=== PATIENT | male | born 1950 | race Caucasian/White ===

== ENCOUNTER → 2017-10-01 14:37 | Outpatient (CLI) | payer MEDICARE, OTHER, SELFPAY ==
--- NOTE | 2017-10-01 14:46 | RAD_ITS ---
STUDY: X-RAY - LEFT KNEE REASON FOR EXAM: Male, 67 years old. Chronic knee pain. TECHNIQUE: 4 view(s) of the knee. COMPARISON: None. FINDINGS: Normal visualized distal femur. Normal visualized proximal tibia and fibula. Normal proximal tibiofibular articulation. Normal medial femorotibial compartment. Normal lateral femorotibial compartment. Normal patellofemoral articulation. The soft tissue structures are unremarkable. RAD/Knee 4 or More Views IMPRESSION: No significant abnormality. Electronically Signed: Mikael Petty MD at 14:57 EST , Service support ,
== END ==
PROVIDERS: Family Provider Family Medicine; PCP Family Medicine; Visit Provider Orthopaedic Surgery
DX: M25.562 Pain in left knee (principal)
CPT/HCPCS: 73564

== ENCOUNTER → 2017-10-14 10:53 | Outpatient (CLI) | payer MEDICARE, OTHER, SELFPAY ==
--- NOTE | 2017-10-14 10:57 | MRI_ITS ---
STUDY: MRI LEFT KNEE REASON FOR EXAM: Male, 67 years old. Medial knee pain x1 year. TECHNIQUE: Standardized fat and water weighted pulse sequences were obtained in all 3 orthogonal planes. COMPARISON: X-RAY LEFT KNEE-October 01, 2017 FINDINGS: There is a intrasubstance degeneration of the body the medial meniscus (coronal T2 series 6, image 15). There is a horizontal undersurface meniscal tear arising at the junction of the posterior body and posterior horn of the medial meniscus (sagittal T2 fat sat series 4, image 5) extending into the posterior horn to the posterior meniscal root. There is an associated multiseptated para meniscal cyst along the posterior medial knee corner (sagittal T2 fat sat series 4, image 3; axial T2 fat sat series 2, image 20; coronal T2 fat sat series 6, image 12), measuring 23 x 5 x 20 mm (AP x mediolateral x craniocaudal). Normal hyaline cartilage of the medial femorotibial compartment. Normal medial femoral condyle and tibial plateau. Normal medial collateral ligamentous complex (MCL). Normal distal semimembranosus, gracilis and semitendinosus tendons. Normal lateral meniscus. Normal hyaline cartilage of the lateral femorotibial compartment. Normal lateral femoral condyle and tibial plateau. Normal proximal tibiofibular articulation. Normal lateral collateral (fibular) ligament. Normal popliteus tendon. Normal biceps femoris tendon. Normal anterior cruciate ligament (ACL). Normal posterior cruciate ligament (PCL). Normal congruent patellofemoral articulation. Normal hyaline cartilage of the patellofemoral compartment. Normal medial and lateral patellar retinaculum. Normal quadriceps tendon. Normal patellar tendon. Normal Hoffa's fat pad. There is a small volume joint effusion. There is edema of the subcutaneous adipose space in a prepatellar/patella tendon location (axial T2 fat sat series 2, image 13; sagittal T2 fat sat series 4, image 15). The otherwise visualized osseous structures are unremarkable. MRI/Lower Ext Joint Only (Routine) IMPRESSION: 1. Full-thickness horizontal tear of the undersurface of the posterior body of the medial meniscus extending to the posterior meniscal root. 2. Associated multiseptated para meniscal cyst along the posterior medial knee corner. 3. Small volume joint effusion. 4. Edema of the subcutaneous adipose space in a prepatellar/patella tendon location. Electronically Signed: Guerrero Rico DO at 13:52 EST Tel , Service support ,
== END ==
PROVIDERS: Family Provider Family Medicine; PCP Family Medicine; Visit Provider Orthopaedic Surgery
DX: S83.242A Other tear of medial meniscus, current injury, left knee, initial encounter (principal)
CPT/HCPCS: 73721

== ENCOUNTER 2019-07-28 13:00 | Outpatient (RCR) | payer MEDICARE, OTHER, SELFPAY ==
--- NOTE | 2019-03-23 13:54 | HP.PTEVAL_ITS ---
Patient's Visit Information AIXA EAST is a 69 year old M referred to Physical Therapy by NANCY SOUSA with a diagnosis of Rev TSA with autograft.. Date of Evaluation: 03/23/19 Physical Therapist: Julius Boyd, ALEXIAT, OCS, CSCS - Visit Plan Frequency: 1x/Week Duration: 2 Months Plan: weekly for progression of AAROM, strength per protocol supplied. Next, check rOM and start isometrics ext rotation and neutral others. May need supine stick abd also. - Subjective Findings: 6 weeks out of L TSA. H/O many dislocations. Got OA and origianl staple replace broke so in 1997 put in new L shoulder. This surgery was 02/10 and reverse TSA. been in a sling. Has not had any real pain. Slight discomfort at times. In sling 23 hours per day until last Saturday. Was just doing wrist aand elbow ex up to 6 weeks. Can start pendulum next week. No sling unless needed now. as ice machine at home but does not need it. Sleep is not great wehn in sling but better now, hard to get comfortable with L UE. Retired e ducation. Enjoys walking 4-5 miles per day 5 days per week. Enjoys outdoor work. wants to be able to shovel and swing axe if needed. I just want my mobility. Precautions are not pushing up with both hands, don't reach behind him, don't work through pain. Can dress, bathe, shower without difficulty modified. - Pain L shoulder Pain Intensity (Out of 10): 1 Pain Intensity Range: 0, 3 - Objective Scapular ROM L slightly limited vs R but functional. Posture is good with only slight forward head. wrist adn elbow AROM symmetrical and without pain, strength 5/5 R and 4+ L. Shoulder PROM L ext neutral, felxion 130, abd 105, ext rotation 20, IR NT. AAROM ext rotation 21 adn flexion 131. No concerns with incisions. No unusual swelling i UE. Walks and transfers normal and cognizant of precautions. - Goals Goal 1:: AROM 0-145 AROM flexion adn 40 ext rotation Goal Time Frame: 4-6 Weeks Goal 2:: Patient sleep without interruption at night. Goal Time Frame: 6-8 Weeks Goal 3:: Patient I in appropriate HEP for strength and ROM maintenance. Goal Time Frame: 6-8 Weeks Goal 4:: Pt feel back to 100% activity as prior to surgery Goal Time Frame: 8-12 Weeks - Rehabilitation Potential Physical Therapy Diagnosis: Rev TSA Rehabilitation Potential: Fair - Anticipated Interventions Patient/Client Instruction: Educate patient on: Condition, Plan of Care For the Purpose of:: To decrease pain, To increase ROM, To increase tolerance to activity/condition/position Therapeutic Exercise to Include: Strength training, Postural training, Passive ROM, Active ROM For the Purpose of:: To decrease pain, To increase ROM, To improve muscle performance and motor function, To improve ability of physical actions for home/community/work/leisure Thank you for the opportunity to evaluate your patient. For Medicare and Medicare HMO plans, please review the plan of care and approve it. It will need to be FAXED BACK to us at [phone] for Medicare purposes. For Medicare only, by signing this I certify the plan of care. Please let me know if there are questions or concerns regarding this plan of care. Physician Signature: Date:
--- NOTE | 2019-04-22 13:46 | HP.PTREVAL ---
NANCY SOUSA, It has been my pleasure to treat AIXA EAST over the last 5 visits for Rev TSA with autograft.. Please see the progress note below for an update on the physical therapy plan of care! Subjective: Still needs more therapy. Movement is better but still very weak. Pretty good feeling in shoulder. 5 mile walk 4x/week without pain. HEP no problem aROm without pain. 7/10 pain if tries to bring shoulder back into extension or across body which he is to avoid. Sleeping OK. Avoiding lifting weights at home, someone else picks up the watermelon. Reaching into upper cupboards may twinge but not pad. Objective/Function: AROM: flexion 140. abd 137. er 43. isometric abd, flexion, ext adn er/ir with good 50% push but ext rotation and IR are moderately trasniently painful. Did not test adduction and IR not tested per protocol. Plan Plan: weekly x 4-6more to progress HEP per protocol of strengthening.ROM. Fair prognosis to cotninue toward goals. Goals Goal 1:: AROM 0-145 AROM flexion adn 40 ext rotation Goal Time Frame: 4-6 Weeks Goal Progress: Progressing Goal 2:: Patient sleep without interruption at night. Goal Time Frame: 6-8 Weeks Goal Progress: Goal Met Goal 3:: Patient I in appropriate HEP for strength and ROM maintenance. Goal Time Frame: 6-8 Weeks Goal Progress: Progressing, need strengt Goal 4:: Pt feel back to 100% activity as prior to surgery Goal Time Frame: 8-12 Weeks Goal Progress: Progressing Anticipated Interventions Patient/Client Instruction: Educate patient on: Condition, Plan of Care For the Purpose of:: To decrease pain, To increase ROM, To increase tolerance to activity/condition/position Therapeutic Exercise to Include: Strength training, Postural training, Passive ROM, Active ROM For the Purpose of:: To decrease pain, To increase ROM, To improve muscle performance and motor function, To improve ability of physical actions for home/community/work/leisure Please do not hesitate to contact me at [phone] by phone or if you have questions or concerns regarding this new plan of care! Sincerely, Julius Boyd, DPT, OCS, CSCS
--- NOTE | 2019-06-01 13:36 | HP.PTREVAL ---
NANCY SOUSA, It has been my pleasure to treat AIXA EAST over the last 11 visits for Rev TSA with autograft.. Please see the progress note below for an update on the physical therapy plan of care! Subjective: Everything is pretty good. GTB getting easy. Objective/Function: 37 ext rotation, PSIS IR seems to lock there, Extension to 18 degrees. Overall doing well with pain and way ahead of schedule according to doctor. Able to put hand behind head to do hair but ot put belt on yet. Plan Plan: Every other week to progress HEP to gym, mobs as needed and progress ROM/strength to full function. Goals Goal 1:: AROM 0-145 AROM flexion adn 40 ext rotation Goal Time Frame: 4-6 Weeks Goal Progress: Progressing Goal 2:: Patient sleep without interruption at night. Goal Time Frame: 6-8 Weeks Goal Progress: Goal Met Goal 3:: Patient I in appropriate HEP for strength and ROM maintenance. Goal Time Frame: 6-8 Weeks Goal Progress: Progressing, need strengt Goal 4:: Pt feel back to 100% activity as prior to surgery Goal Time Frame: 8-12 Weeks Goal Progress: Progressing Anticipated Interventions Patient/Client Instruction: Educate patient on: Condition, Plan of Care For the Purpose of:: To decrease pain, To increase ROM, To increase tolerance to activity/condition/position Therapeutic Exercise to Include: Strength training, Postural training, Passive ROM, Active ROM For the Purpose of:: To decrease pain, To increase ROM, To improve muscle performance and motor function, To improve ability of physical actions for home/community/work/leisure Please do not hesitate to contact me at [phone] by phone or if you have questions or concerns regarding this new plan of care! Sincerely, Julius Boyd, DPT, OCS, CSCS
--- NOTE | 2019-07-14 13:29 | HP.PTREVAL ---
NANCY SOUSA, It has been my pleasure to treat AIXA EAST over the last 14 visits for Rev TSA with autograft.. Please see the progress note below for an update on the physical therapy plan of care! Subjective: 2/10. I always have a 2-3. Replaced an exterior door yesterday and was slightly worse. Sleeping well and normal. Putting a jacket and belt on are still modified. Still weak in lifting up over 90 degrees. 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 80% ROM improvement adn 30% strength. Pain is mostly 2/10. Objective/Function: 35 ext rotationa ctive, 145 flexion, 155 abd. 4/5 flexion and abduction L and 3+ ext rotation, 4/5 internal rotation. Lifting it well. Improving strength and slowly improving Plan Plan: f/u after doctor for d/c or progression. Goals Goal 1:: AROM 0-145 AROM flexion adn 40 ext rotation Goal Time Frame: 4-6 Weeks Goal Progress: Progressing Goal 2:: Patient sleep without interruption at night. Goal Time Frame: 6-8 Weeks Goal Progress: Goal Met Goal 3:: Patient I in appropriate HEP for strength and ROM maintenance. Goal Time Frame: 6-8 Weeks Goal Progress: Goal Met Goal 4:: Pt feel back to 100% activity as prior to surgery Goal Time Frame: 8-12 Weeks Goal Progress: Progressing Anticipated Interventions Patient/Client Instruction: Educate patient on: Condition, Plan of Care For the Purpose of:: To decrease pain, To increase ROM, To increase tolerance to activity/condition/position Therapeutic Exercise to Include: Strength training, Postural training, Passive ROM, Active ROM For the Purpose of:: To decrease pain, To increase ROM, To improve muscle performance and motor function, To improve ability of physical actions for home/community/work/leisure Please do not hesitate to contact me at [phone] by phone or if you have questions or concerns regarding this new plan of care! Sincerely, Julius Boyd, DPT, OCS, CSCS
--- NOTE | 2019-07-28 13:22 | HP.PTDCSUM ---
HP - PT D/C Summary It has been my pleasure to treat AIXA EAST under orders from NANCY SOUSA, for the diagnosis of Rev TSA with autograft. for a total of 15 visit(s). Discharge Date: 07/28/19 Please see the following information for a summary of their discharge status. - Subjective Subjective: Doctor said he is doing remarkable. She said the discomfort will be from the deltoid adn it will get better. Getting behind the back he is ahead of the game and will never be normal. Will f/u in February at one year. Will continue light weight training. No tto work through pain. - Pain L shoulder Pain Intensity (Out of 10): 1 - Overall Improvement % Improvement: 80 - Objective Objective/Function: Similar numbers to last weeks recheck. Doing well without increased pain with 145 flexiona dn abduction. 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 - Goals Goal 1:: AROM 0-145 AROM flexion adn 40 ext rotation Goal Progress: met flexion, not er. Goal 2:: Patient sleep without interruption at night. Goal Progress: Goal Met Goal 3:: Patient I in appropriate HEP for strength and ROM maintenance. Goal Progress: Goal Met Goal 4:: Pt feel back to 100% activity as prior to surgery Goal Progress: Progressing - Plan Plan: d/c - D/C Information Discharge Comments: saw doctor last week adn is doing very well. Will continue with gym exercises and home ROM Anju from this point forward. If there are questions or concerns regarding this patient's physical therapy, please feel free to call me at [phone]. Thank you for the referral of this patient. Sincerely, Julius Boyd, DPT, OCS, CSCS
== END 2019-07-28 19:00 | disposition home or self-care (01) ==
LOC: PT 13:00
PROVIDERS: Family Provider Family Medicine; PCP Family Medicine
DX: Z79.899 Other long term (current) drug therapy (principal)
CPT/HCPCS: 97110; 97161; 97530

== ENCOUNTER → 2021-06-01 | Outpatient (CLI) | payer MEDICARE, OTHER, SELFPAY ==
--- NOTE | 2021-06-01 | IMM_PTH ---
PATIENT: AIXA EAST LOC: [facility] U#:[id number] AGE/SX: 71/M ROOM: RE06/01/[address]: Dr. Mo Betancourt MD : 1950 BED: DIS: 06/01/2021 SPEC #: [id number] RECD: 06/05/21 12:45 STATUS: CORTNEY REQ #: [id number] JAGDISH: 06/01/21 00:[address]: Mo Betancourt DEPT: IMMUNOHISTOCHEMISTRY RECD BY: Barb Isidro ENTERED: 06/05/21 12:47 SP TYPE: IMMUNO OTHR DR: Dr. Guerrero Lynn III, MD Tissues: C - PROSTATE RIGHT Procedures: P40 (add) 34BE12 (initial) PHYSICIAN & INSTITUTION [facility] [id number] SPECIMEN INFORMATION: Tissue Source: C - Right prostate, base, core biopsy Clinical Info: Elevated PSA Specimen Number: [id number] CPT code: 43020, 86324 METHODOLOGY: Deparaffinized sections of prefer/formalin-fixed tissue or PAP/DQ stained slides are incubated with monoclonal/polyclonal antibodies/oligonucleotide probes. Localization is made via biotin free immunoperoxidase method. Appropriate controls are performed and reacted as expected. Results on target cell population are indicated in the following table: RESULTS: ANTIBODY / CLONE RESULT Block C P40 (BC28) negative * 34BE12 (34BE12) negative * *?Positive in the area of HGPIN. These tests were developed and their performance characteristics determined by [facility]. They may not have been cleared or approved by the U.S. Food and Drug Administration. The FDA has determined that such clearance or approval is not necessary. The above immunohistochemical/dualISH markers are ordered and reviewed by the Pathologist. INTERPRETATION: C. Right prostate, base, core biopsy: Adenocarcinoma. Focal high-grade prostatic intraepithelial neoplasia (HGPIN). SJ:mansoor 06/06/2021
--- NOTE | 2021-06-01 08:30 | PROSBIL_PTH ---
PATIENT: AIXA EAST LOC: [facility] U#:[id number] AGE/SX: 71/M ROOM: RE06/01/[address]: Dr. Mo Betancourt MD : 1950 BED: DIS: 06/01/2021 SPEC #: [id number] RECD: 06/01/21 10:41 STATUS: CORTNEY REYu #: [id number] JAGDISH: 06/01/21 08:[address]: Mo Betancourt DEPT: SURGICAL PATHOLOGY RECD BY: Mellisa Schaefer ENTERED: 06/02/21 09:02 SP TYPE: PROST BX SANTOSH DR: Dr. Guerrero Lynn III, MD Tissues: A - PROSTATE RIGHT B - PROSTATE RIGHT C - PROSTATE RIGHT D - PROSTATE LEFT E - PROSTATE LEFT F - PROSTATE LEFT Procedures: PROSTATE BX HEADER OPERATION: Prostate biopsy PRE-OP DIAGNOSIS: Elevated PSA TISSUE SUBMITTED: A - Right apex, B - Right mid, C - Right base, D - Left apex, E - Left mid, F - Left base MICROSCOPIC DIAGNOSIS A. Right prostate, apex, core biopsy: Prostatic tissue, negative for malignancy. B. Right prostate, mid, core biopsy: Focal high-grade prostatic intraepithelial neoplasia (HGPIN). C. Right prostate, base, core biopsy: Prostatic adenocarcinoma. Rebeka grade: 3+3=6 Number of cores involved: 1/3 Proportion of tissue involved: ~5% Perineural invasion: Not identified. Greatest tumor length: 0.2 cm Focal high-grade prostatic intraepithelial neoplasia (HGPIN). See comment. D. Left prostate, apex, core biopsy: Focal high-grade prostatic intraepithelial neoplasia (HGPIN). E. Left prostate, mid, core biopsy: Focal high-grade prostatic intraepithelial neoplasia (HGPIN). F. Left prostate, base, core biopsy: Prostatic tissue, negative for malignancy. SJ:mansoor 06/05/2021 COMMENT C. Immunohistochemistry ([id number]) supports the above diagnosis. Case has been reviewed in consultation with Dr. Galindo who concurs with the above diagnosis. IDC:AM MICROSCOPIC DESCRIPTION Slides are reviewed. GROSS DESCRIPTION A - Received is one container designated prostate, right apex. The specimen consists of one elongated fragments of light daigle-white soft tissue each measuring 1.2 cm in length and 0.1 cm in diameter. The specimen is totally submitted in one cassette. B - Received is one container designated prostate, right mid. The specimen consists of two elongated fragments of light daigle-white soft tissue each measuring 1.1 cm in length and 0.1 cm in diameter. The specimen is totally submitted in one cassette. C - Received is one container designated prostate, right base. The specimen consists of three elongated fragments of light daigle-white soft tissue measuring 0.4 to 1 cm in length and 0.1 cm in diameter. The specimen is totally submitted in one cassette. D - Received is one container designated prostate, left apex. The specimen consists of one elongated fragment of light daigle-white soft tissue measuring 0.8 cm in length and 0.1 cm in diameter. The specimen is totally submitted in one cassette. E - Received is one container designated prostate, left mid. The specimen consists of two elongated fragments of light daigle-white soft tissue measuring 1 and 1.2 cm in length and 0.1 cm in diameter. The specimen is totally submitted in one cassette. F - Received is one container designated prostate, left base. The specimen consists of two elongated fragments of light daigle-white soft tissue measuring 0.5 and 1.5 cm in length and 0.1 cm in diameter. The specimen is totally submitted in one cassette. / SJ:rg 06/02/21 TC:0 [facility]: [id number]
== END | disposition home or self-care (01) ==
LOC: LABSPEC 12:11
PROVIDERS: PCP Family Medicine; Referring Provider Urology; Visit Provider Urology
DX: R97.20 Elevated prostate specific antigen [PSA] (principal)
CPT/HCPCS: 88305; 88341; 88342; G0416

== ENCOUNTER → 2021-12-11 | Outpatient (CLI) | payer MEDICARE, OTHER, SELFPAY ==
[2021-12-11 11:49] LABS: Absolute Lymphocyte Count 1.74 X10^3/uL (0.83-4.51); Absolute Neutrophil Count 3.8 X10^3/uL (2.0-7.7); Basophil# 0.03 X10^3/uL; Basophil% 0.5 % (0-1); Eosinophil# 0.41 X10^3/uL; Eosinophils% 6.3 % (0-5); Hematocrit 34.1 % (40-54); Hemoglobin 11.2 g/dL (13.0-16.5); Lymphocyte # 1.74 X10^3/ul (0.83-4.51); Lymphocyte % 26.9 % (19-41); Mean Corp Hgb Conc 32.8 g/dL (32-36); Mean Corpuscular Volume 85.3 fL (80-94); Mean Platelet Vol. 10.4 fl (6.2-12.0); Monocyte# 0.49 X10^3/uL; Monocyte% 7.6 % (0-10); NRBC Flagged by Analyzer 0 % (0-5); Neutrophil # 3.77 X10^3/uL (2.7-7.7); Neutrophil % 58.1 % (47-70); Platelet Count 206 K/mm3 (150-450); RBC Distribution Width CV 13.7 % (11.6-14.6); RBC Distribution Width SD 42.5 fl (35.1-43.9); White Blood Count 6.5 K/mm3 (4.4-11.0)
[2021-12-11 11:56] LABS: Anion Gap 4 (5-15); BUN 17 mg/dL (7-18); BUN/Creat Ratio 21.7 RATIO (10-20); Calcium,Total 9.4 mg/dL (8.5-10.1); Chloride 104 mmol/L (98-107); Creatinine, Serum 0.78 mg/dL (0.70-1.30); EST Glomerular Filtration Rate 104 mL/min (>60); Est Glom Filt Rate - Afr Amer 126 mL/min (>60); Glucose 94 mg/dL (74-106); Potassium 3.9 mmol/L (3.5-5.1); Sodium Level 139 mmol/L (136-145)
[2021-12-12 11:40] LABS: AST(SGOT) 40 U/L (15-37); Alanine Aminotransfer ALT/SGPT 24 U/L (16-61); Albumin, Serum 3.4 g/dL (3.2-5.0); Alkaline Phosphatase 78 U/L (45-117); Bilirubin, Direct 0.16 mg/dL (0.00-0.30); Globulin 3.4 g/dL (2.2-4.2); Protein, Total 6.8 g/dL (6.4-8.2)
== END | disposition home or self-care (01) ==
LOC: LABSPEC 11:38
DX: T84.59XD Infection and inflammatory reaction due to other internal joint prosthesis, subsequent encounter (principal)
CPT/HCPCS: 80048; 80076; 85025

== ENCOUNTER → 2021-12-15 | Outpatient (CLI) | payer MEDICARE, OTHER, SELFPAY ==
[2021-12-15 11:20] LABS: PSA,Total- Diagnostic 9.68 ng/mL (0.0-4.0)
== END | disposition home or self-care (01) ==
LOC: LAB 10:17
PROVIDERS: PCP Internal Medicine; Referring Provider Urology; Visit Provider Urology
DX: C61 Malignant neoplasm of prostate (principal)
CPT/HCPCS: 36415; 84153

== ENCOUNTER → 2021-12-19 | Outpatient (CLI) | payer MEDICARE, OTHER, SELFPAY ==
[2021-12-19 11:13] LABS: Absolute Neutrophil Count 4.8 X10^3/uL (2.0-7.7); Basophil# 0.04 X10^3/uL; Basophil% 0.5 % (0-1); Eosinophil# 0.48 X10^3/uL; Eosinophils% 6.5 % (0-5); Hematocrit 35.6 % (40-54); Hemoglobin 11.5 g/dL (13.0-16.5); Lymphocyte % 20.4 % (19-41); Mean Corp Hgb Conc 32.3 g/dL (32-36); Mean Corpuscular Hgb 27.4 pg (27.0-32.0); Mean Platelet Vol. 10.4 fl (6.2-12.0); Monocyte# 0.47 X10^3/uL; Monocyte% 6.4 % (0-10); NRBC Flagged by Analyzer 0 % (0-5); Neutrophil # 4.83 X10^3/uL (2.7-7.7); Neutrophil % 65.8 % (47-70); Platelet Count 213 K/mm3 (150-450); RBC Distribution Width CV 14.5 % (11.6-14.6); RBC Distribution Width SD 44.8 fl (35.1-43.9); Red Blood Count 4.19 M/mm3 (4.6-6.2); White Blood Count 7.4 K/mm3 (4.4-11.0)
[2021-12-19 11:25] LABS: AST(SGOT) 32 U/L (15-37); Alanine Aminotransfer ALT/SGPT 28 U/L (16-61); Albumin, Serum 3.6 g/dL (3.2-5.0); Alkaline Phosphatase 77 U/L (45-117); Anion Gap 8 (5-15); BUN 25 mg/dL (7-18); BUN/Creat Ratio 29.5 RATIO (10-20); Bilirubin, Direct 0.18 mg/dL (0.00-0.30); Calcium,Total 9.6 mg/dL (8.5-10.1); Chloride 105 mmol/L (98-107); Creatinine, Serum 0.85 mg/dL (0.70-1.30); EST Glomerular Filtration Rate 95 mL/min (>60); Est Glom Filt Rate - Afr Amer 115 mL/min (>60); Globulin 3.4 g/dL (2.2-4.2); Glucose 99 mg/dL (74-106); Potassium 3.8 mmol/L (3.5-5.1); Sodium Level 141 mmol/L (136-145)
== END | disposition home or self-care (01) ==
LOC: LABSPEC 10:28
PROVIDERS: PCP Internal Medicine
DX: T84.59XD Infection and inflammatory reaction due to other internal joint prosthesis, subsequent encounter (principal)
CPT/HCPCS: 80048; 80076; 85025

== ENCOUNTER → 2021-12-25 | Outpatient (CLI) | payer MEDICARE, OTHER, SELFPAY ==
[2021-12-25 12:12] LABS: Absolute Lymphocyte Count 1.37 X10^3/uL (0.83-4.51); Absolute Neutrophil Count 3.2 X10^3/uL (2.0-7.7); Basophil# 0.03 X10^3/uL; Basophil% 0.5 % (0-1); Eosinophil# 0.51 X10^3/uL; Hemoglobin 11.2 g/dL (13.0-16.5); Lymphocyte # 1.37 X10^3/ul (0.83-4.51); Lymphocyte % 24.1 % (19-41); Mean Corpuscular Hgb 27.7 pg (27.0-32.0); Mean Corpuscular Volume 86.6 fL (80-94); Mean Platelet Vol. 10.8 fl (6.2-12.0); Monocyte# 0.57 X10^3/uL; NRBC Flagged by Analyzer 0 % (0-5); Neutrophil # 3.18 X10^3/uL (2.7-7.7); Platelet Count 184 K/mm3 (150-450); RBC Distribution Width CV 14.2 % (11.6-14.6); RBC Distribution Width SD 45.3 fl (35.1-43.9); Red Blood Count 4.04 M/mm3 (4.6-6.2); White Blood Count 5.7 K/mm3 (4.4-11.0)
[2021-12-25 12:31] LABS: AST(SGOT) 19 U/L (15-37); Alanine Aminotransfer ALT/SGPT 21 U/L (16-61); Albumin, Serum 3.7 g/dL (3.2-5.0); Alkaline Phosphatase 72 U/L (45-117); Anion Gap 7 (5-15); BUN 27 mg/dL (7-18); BUN/Creat Ratio 34.3 RATIO (10-20); Calcium,Total 9.3 mg/dL (8.5-10.1); Chloride 105 mmol/L (98-107); Creatinine, Serum 0.79 mg/dL (0.70-1.30); EST Glomerular Filtration Rate 104 mL/min (>60); Est Glom Filt Rate - Afr Amer 125 mL/min (>60); Globulin 2.9 g/dL (2.2-4.2); Glucose 89 mg/dL (74-106); Potassium 3.8 mmol/L (3.5-5.1); Protein, Total 6.6 g/dL (6.4-8.2); Sodium Level 140 mmol/L (136-145)
== END | disposition home or self-care (01) ==
LOC: LABSPEC 11:37
PROVIDERS: PCP Internal Medicine
DX: T84.59XA Infection and inflammatory reaction due to other internal joint prosthesis, initial encounter (principal)
CPT/HCPCS: 80048; 80076; 85025

== ENCOUNTER → 2022-01-01 | Outpatient (CLI) | payer MEDICARE, OTHER, SELFPAY ==
[2022-01-01 11:07] LABS: Absolute Lymphocyte Count 1.49 X10^3/uL (0.83-4.51); Absolute Neutrophil Count 2.9 X10^3/uL (2.0-7.7); Basophil# 0.04 X10^3/uL; Basophil% 0.7 % (0-1); Eosinophil# 0.56 X10^3/uL; Eosinophils% 10.2 % (0-5); Hematocrit 35.5 % (40-54); Hemoglobin 11.6 g/dL (13.0-16.5); Lymphocyte # 1.49 X10^3/ul (0.83-4.51); Lymphocyte % 27.1 % (19-41); Mean Corp Hgb Conc 32.7 g/dL (32-36); Mean Corpuscular Volume 85.7 fL (80-94); Monocyte# 0.51 X10^3/uL; Monocyte% 9.3 % (0-10); NRBC Flagged by Analyzer 0 % (0-5); Neutrophil # 2.86 X10^3/uL (2.7-7.7); Neutrophil % 52.2 % (47-70); Platelet Count 161 K/mm3 (150-450); RBC Distribution Width CV 14.3 % (11.6-14.6); RBC Distribution Width SD 44.8 fl (35.1-43.9); Red Blood Count 4.14 M/mm3 (4.6-6.2); White Blood Count 5.5 K/mm3 (4.4-11.0)
[2022-01-01 11:26] LABS: AST(SGOT) 20 U/L (15-37); Alanine Aminotransfer ALT/SGPT 19 U/L (16-61); Albumin, Serum 3.6 g/dL (3.2-5.0); Alkaline Phosphatase 76 U/L (45-117); Anion Gap 6 (5-15); BUN 23 mg/dL (7-18); BUN/Creat Ratio 27.4 RATIO (10-20); Bilirubin, Direct 0.16 mg/dL (0.00-0.30); Chloride 106 mmol/L (98-107); Creatinine, Serum 0.84 mg/dL (0.70-1.30); EST Glomerular Filtration Rate 96 mL/min (>60); Est Glom Filt Rate - Afr Amer 116 mL/min (>60); Globulin 3.1 g/dL (2.2-4.2); Glucose 99 mg/dL (74-106); Potassium 3.7 mmol/L (3.5-5.1); Protein, Total 6.7 g/dL (6.4-8.2); Sodium Level 140 mmol/L (136-145)
== END | disposition home or self-care (01) ==
PROVIDERS: PCP Internal Medicine
DX: T84.59XA Infection and inflammatory reaction due to other internal joint prosthesis, initial encounter (principal)
CPT/HCPCS: 80048; 80076; 85025

== ENCOUNTER → 2022-01-09 | Outpatient (CLI) | payer MEDICARE, OTHER, SELFPAY ==
[2022-01-09 11:03] LABS: Absolute Lymphocyte Count 1.35 X10^3/uL (0.83-4.51); Absolute Neutrophil Count 2.9 X10^3/uL (2.0-7.7); Basophil# 0.04 X10^3/uL; Basophil% 0.8 % (0-1); Eosinophils% 9.4 % (0-5); Hematocrit 35.2 % (40-54); Hemoglobin 11.4 g/dL (13.0-16.5); Lymphocyte # 1.35 X10^3/ul (0.83-4.51); Lymphocyte % 25.5 % (19-41); Mean Corp Hgb Conc 32.4 g/dL (32-36); Mean Corpuscular Volume 86.5 fL (80-94); Mean Platelet Vol. 10.9 fl (6.2-12.0); Monocyte% 9.4 % (0-10); NRBC Flagged by Analyzer 0 % (0-5); Neutrophil # 2.89 X10^3/uL (2.7-7.7); Neutrophil % 54.5 % (47-70); Platelet Count 147 K/mm3 (150-450); RBC Distribution Width CV 14.4 % (11.6-14.6); RBC Distribution Width SD 45.6 fl (35.1-43.9); Red Blood Count 4.07 M/mm3 (4.6-6.2); White Blood Count 5.3 K/mm3 (4.4-11.0)
[2022-01-09 11:21] LABS: AST(SGOT) 24 U/L (15-37); Alanine Aminotransfer ALT/SGPT 24 U/L (16-61); Albumin, Serum 3.6 g/dL (3.2-5.0); Alkaline Phosphatase 71 U/L (45-117); Anion Gap 6 (5-15); BUN 33 mg/dL (7-18); BUN/Creat Ratio 43.3 RATIO (10-20); Bilirubin, Direct 0.13 mg/dL (0.00-0.30); Calcium,Total 9.1 mg/dL (8.5-10.1); Chloride 110 mmol/L (98-107); Creatinine, Serum 0.76 mg/dL (0.70-1.30); EST Glomerular Filtration Rate 107 mL/min (>60); Est Glom Filt Rate - Afr Amer 130 mL/min (>60); Globulin 2.8 g/dL (2.2-4.2); Glucose 97 mg/dL (74-106); Potassium 3.7 mmol/L (3.5-5.1); Protein, Total 6.4 g/dL (6.4-8.2); Sodium Level 142 mmol/L (136-145)
== END | disposition home or self-care (01) ==
LOC: LABSPEC 10:52
PROVIDERS: PCP Internal Medicine
DX: T84.59XA Infection and inflammatory reaction due to other internal joint prosthesis, initial encounter (principal)
CPT/HCPCS: 80048; 80076; 85025

== ENCOUNTER → 2022-01-16 | Outpatient (CLI) | payer MEDICARE, OTHER, SELFPAY ==
[2022-01-16 13:42] LABS: Absolute Lymphocyte Count 1.33 X10^3/uL (0.83-4.51); Absolute Neutrophil Count 3.1 X10^3/uL (2.0-7.7); Basophil# 0.04 X10^3/uL; Basophil% 0.7 % (0-1); Eosinophil# 0.65 X10^3/uL; Eosinophils% 11.5 % (0-5); Hematocrit 37.3 % (40-54); Hemoglobin 12.1 g/dL (13.0-16.5); Lymphocyte # 1.33 X10^3/ul (0.83-4.51); Lymphocyte % 23.6 % (19-41); Mean Corp Hgb Conc 32.4 g/dL (32-36); Mean Corpuscular Volume 86.3 fL (80-94); Monocyte# 0.49 X10^3/uL; Monocyte% 8.7 % (0-10); NRBC Flagged by Analyzer 0 % (0-5); Neutrophil # 3.11 X10^3/uL (2.7-7.7); Neutrophil % 55.1 % (47-70); Platelet Count 158 K/mm3 (150-450); RBC Distribution Width CV 14.3 % (11.6-14.6); RBC Distribution Width SD 45.4 fl (35.1-43.9); Red Blood Count 4.32 M/mm3 (4.6-6.2); White Blood Count 5.6 K/mm3 (4.4-11.0)
[2022-01-16 14:15] LABS: AST(SGOT) 24 U/L (15-37); Alanine Aminotransfer ALT/SGPT 26 U/L (16-61); Albumin, Serum 3.6 g/dL (3.2-5.0); Alkaline Phosphatase 78 U/L (45-117); Anion Gap 7 (5-15); BUN 22 mg/dL (7-18); BUN/Creat Ratio 27.4 RATIO (10-20); Calcium,Total 9.2 mg/dL (8.5-10.1); Chloride 105 mmol/L (98-107); EST Glomerular Filtration Rate 101 mL/min (>60); Est Glom Filt Rate - Afr Amer 122 mL/min (>60); Glucose 98 mg/dL (74-106); Potassium 4.1 mmol/L (3.5-5.1); Protein, Total 6.6 g/dL (6.4-8.2); Sodium Level 139 mmol/L (136-145)
== END | disposition home or self-care (01) ==
LOC: LABSPEC 13:32
PROVIDERS: PCP Internal Medicine
DX: T84.59XA Infection and inflammatory reaction due to other internal joint prosthesis, initial encounter (principal)
CPT/HCPCS: 80048; 80076; 85025

== ENCOUNTER 2022-05-02 11:48 | Emergency (ER) | payer MEDICARE, OTHER, SELFPAY ==
[2022-05-02 11:50] VITALS: BP 153/74; PULSE 92; RESP 18; TEMP 36.7; O2SAT 98; BMI 24.3
--- NOTE | 2022-05-02 12:20 | EDS_ITS ---
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 He has had issues with urinary retention since the surgery. He has had 4-5 Garcia catheters placed. He has seen local urologist Dr. Manjinder Betancourt and has had a cystoscopy done in the past week that was unremarkable. He is having no gross hematuria. Since last night around 5 or 6 PM he has been unable to urinate. Prior similar symptoms: Yes Recent Illness/Hospitalization: Yes [facility] Medical History (Updated 05/02/22 @ 14:[address] Rock Knight MD) High cholesterol Home Medications atorvastatin 20 mg tablet 20 mg PO QDAY 10/01/17 [History Last Taken Unknown] lisinopril 10 mg-hydrochlorothiazide 12.5 mg tablet 1 tab PO BID 10/01/17 [History Last Taken Unknown] Allergy/AdvReac Type Severity Reaction Status Date / Time penicillin V Allergy unknown Verified 05/02/22 11:49 Surgical History H/O hernia repair left shoulder surgery Social History Smoking Status: Never smoker alcohol intake: current ROS ROS ED ROS Narrative Urinary retention. Review of Systems ROS Unobtainable: Denies due to encephalopathy Constitutional Constitutional ED: Reports chills Eyes Eyes: Denies blurry vision ENT ENT ED: Denies ear pain Cardiovascular Cardiovascular: Denies chest pain Respiratory/Chest Respiratory/Chest: Denies cough Gastrointestinal Gastrointestinal: Reports abdominal pain; Denies constipation, diarrhea, melena, nausea or vomiting Genitourinary Genitourinary ED: Reports dysuria and other Details: Urinary retention ; Denies hematuria or urinary frequency Musculoskeletal Musculoskeletal: Denies arthralgias Integumentary Denies abscess Neurologic Neurologic: Denies headache(s) Psychiatric Psychiatric: Denies anxiety Endocrine Endocrinology: Denies polydipsia Hematologic/Lymphatic Hematologic/Lymphatic: Denies easy bleeding Allergic/Immunologic Allergic/Immunologic ED: Denies mouth swelling EXAM Physical Exam Narrative Exam Narrative: 9-year-old male no acute distress. Vital signs stable afebrile. H EENT exam unremarkable. Neck nontender. Lungs are clear. Heart regular rhythm no murmur . Abdomen soft nondistended normal bowel sounds. Fullness in his suprapubic area consistent with dilated bladder. No peritoneal signs. Moving all 4 extremities. Sling on his left arm from recent left shoulder replacement surgery. No edema. Dry and clean left shoulder surgical incision. Neurologically awake and alert. Const Vital Signs: 05/02/22 11:50 Temperature 98.1 F Temperature Source Temporal Pulse Rate 92 Respiratory Rate 18 Blood Pressure 153/74 H Blood Pressure Mean 100 Pulse Ox 98 Oxygen Delivery Method Room Air Positive well nourished and well developed; Negative for obese, cachectic, contractures or unkempt General Appearance ED: well developed and NAD; Negative for unkempt, cachectic, contractures or pallor Nutritional Appearance: Negative for cachectic or obese HEENT Reports moist mucous membranes; Denies dry mucous membranes normocephalic and atraumatic; Negative for trauma or tenderness Mouth ED: No dry mucous membranes Mouth: No dry mucous membranes Eyes PERRL and EOMs intact bilaterally General Eye ED: Negative for pale conjunctiva or scleral icterus Neck no lymphadenopathy, supple and no JVD General: Negative for tenderness Resp normal respiratory effort and clear to auscultation bilaterally Effort and Inspection: Negative for retractions Auscultation: Negative for rales, rhonchi or wheezes Cardio regular rate, regular rhythm, S1 normal heart sound, S2 normal heart sound and no murmurs Rate: Negative for bradycardia Rhythm: Negative for abnormal rhythm Heart Sounds: Negative for other GI non-tender, non-distended and no masses Inspection: Negative for abdominal distention Auscultation: normoactive bowel sounds Palpation: soft; Negative for tender, guarding or hepatomegaly no CVA tenderness Back/Spine no CVA tenderness General Back: Negative for CVA tenderness Cervical Spine: Negative for cervical spine tenderness Thoracic Spine / Upper Back: Negative for thoracic spinal tenderness Lumbar Spine / Lower Back: Negative for lumbar spinal tenderness Extremity normal to inspection General Extremety ED: Negative for edema or pulses abnormal General Extremity: Negative for edema or pulses abnormal Neuro oriented x3, moves all extremities and no focal motor deficits Sensorium / Orientation: alert, oriented to person, oriented to place and oriented to time; Negative for orientation impaired or confused Motor Exam: strength 5/5 throughout Psych mental status grossly normal Appearance: Negative for unkempt Attitude: No agitated Mood & Affect: Negative for depressed Thought Process: normal thought process Thought Content: normal thought content Skin General Skin Exam: Negative for jaundice or pallor Lesions: no lesions Rashes: no rashes Trauma: Negative for abrasion or laceration MDM MDM MDM Narrative Medical decision making narrative: 72-year-old male with urinary retention. Has had issues with this the last 3 to 4 weeks after having left shoulder surgery. He has seen urology they have done cystoscopy. We will do a bladder scan, place a Garcia catheter and check a urinalysis. He has had no gross hematuria. Garcia was placed by nurse. There is about 500+ cc of clear yellow urine. No clots or gross blood. Patient doing well. We discussed his urine results and culture will be sent. He will be discharged home to follow-up with his urologi st for urinary retention. Lab Data Attestation: I reviewed the patient's lab results. Lab results narrative: Urinalysis shows no nitrites 10-25 white cells no red cells and 3+ bacteria. A culture will be sent. That returns positive then he will need to be started on antibiotics. I will discuss this with the patient. Labs: Laboratory Results - last 24 hr 05/02/22 13:15 Urine Color Yellow Urine Clarity Sl. Cloudy Urine pH 6.0 Ur Specific [place] 1.015 Urine Protein 15 H Urine Glucose (UA) Normal Urine Ketones 15 H Urine Occult Blood 50 H Urine Nitrite Negative Urine Bilirubin Negative Urine Urobilinogen Normal Ur Leukocyte Esterase 100 H Urine RBC 0 SEEN Urine WBC 10-25 SEEN Ur Squamous Epith Cells 0 SEEN Urine Bacteria 3+ Urine Mucus 0 SEEN Discharge Plan Triage Chief Complaint: Complaint ED Provider: Rock Knight Dx/Rx/DC Orders Clinical Impression: Acute urinary retention Instructions: ED Urinary Retention, Male Prescriptions: No Action lisinopril-hydrochlorothiazide 10-12.5 mg tablet 1 tab PO BID atorvastatin 20 mg tablet 20 mg PO QDAY Primary Care Provider: Max Traylor Referrals: Mo Betancourt MD [Med Staff - Active Staff] - As soon as possible Max Traylor MD [Primary Care Provider] - Activity Restrictions/Additional Instructions: Continue your current medications. Call and follow-up with your urologist, Dr. Manjinder Betancourt, for repeat evaluation for urinary retention. Your urinalysis showed some white cells and bacteria in your urine. I sent a urine culture if that returns positive meaning that there is growth then we will start you on an antibiotic. At this time with no urinary symptoms we would not start an antibiotic. Disposition Disposition: Home, Self Care
[2022-05-02 13:26] LABS: Mucous, Urine 0 SEEN /hpf (<or=2+); Red Blood Cells-Urine 0 SEEN /hpf (0-5); Squamous Epithelial Cells - UA 0 SEEN /hpf (0-5)
[2022-05-02 13:32] LABS: Color, Urine Yellow (Yellow); Glucose, Dipstick Normal (Normal); Ketone-Dipstick 15 mg/dl (Negative); Leukocyte Esterase-Dipstick 100 /ul (Negative); Nitrite-Dipstick Negative (Negative); Occult Blood-Urine 50 /ul (Negative); Protein-Dipstick 15 mg/dl (Negative); Specific Gravity, Urine 1.015 (1.002-1.030); Urine Bilirubin Dipstick Negative (Negative); Urine Clarity Sl. Cloudy (Clear); Urine Urobilinogen Normal (Normal)
[2022-05-02 13:39] LABS: Bacteria 3+ /hpf (None Seen); White Blood Cells 10-25 SEEN /hpf (0-5)
== END 2022-05-02 14:30 | disposition home or self-care (01) ==
PROVIDERS: Emergency Provider Emergency Medicine; PCP Internal Medicine; Visit Provider Emergency Medicine
DX: R33.9 Retention of urine, unspecified (principal); E78.00 Pure hypercholesterolemia, unspecified; Z96.612 Presence of left artificial shoulder joint
CPT/HCPCS: 51702; 81001; 87077; 87086; 87088; 87186; 99283

== ENCOUNTER 2022-05-07 13:11 | Observation (INO) | payer MEDICARE, OTHER, SELFPAY ==
[2022-05-07] VITALS (9 sets, daily range): BP systolic 132–145; BP diastolic 66–88; PULSE 63–87; RESP 16–18; TEMP 36.5–37.2; O2SAT 97–100; BMI 24.0; BMI 25.2
[2022-05-07] MEDS: Lactated Ringers 1,000 ML 15 ML IV ×2 (10:00→13:00)
--- NOTE | 2022-05-07 11:45 | PROS_PTH ---
PATIENT: AIXA EAST LOC: [facility] U#:[id number] AGE/SX: 72/M ROOM: [facility] RE05/07/[address]: Dr. Mo Betancourt MD : 1950 BED: 1 DIS: 05/08/2022 SPEC #: [id number] RECD: 05/07/22 14:44 STATUS: CORTNEY VIEIRA #: [id number] JAGDISH: 05/07/22 11:[address]: Mo Betancourt DEPT: SURGICAL PATHOLOGY RECD BY: Mellisa Schaefer ENTERED: 05/08/22 08:53 SP TYPE: TURP OTHR DR: Dr. Max Traylor MD Tissues: Prostate, NOS Procedures: Surgery Specimen Level IV HEADER OPERATION: Cysto, TUR prostate, Olymp[employer] PRE-OP DIAGNOSIS: BPH with lower urinary tract symptoms, retention of urine TISSUE SUBMITTED: Prostate tissue MICROSCOPIC DIAGNOSIS Prostate, transurethral resection: Benign nodular hyperplasia. Acute and chronic prostatitis. AM:mansoor 05/09/2022 MICROSCOPIC DESCRIPTION Slides are reviewed. GROSS DESCRIPTION Received is one container labeled with the patient's name and designated prostate tissue. The specimen consists of multiple irregular fragments of pink-daigle, rubbery, soft tissue that in aggregate weigh 23.5 gm and measure in aggregate 7 x 6 x 2.5 cm. Software Test Technician tissue is submitted in ten cassettes. / SJ:mansoor 05/08/2022 TC:2 CPT: 64872
--- NOTE | 2022-05-07 12:04 | DCINST_ITS ---
Discharge Instructions Diet Discharge Diet: No restrictions, Light diet - advance as tolerated and Soft diet Activity Discharge Activity: May Not Drive Dressing / Incision Call your doctor if your incision/area has: Continuous Slow Oozing and Sudden Increased Bleeding Follow Up Care Please Follow Up With: Mo Betancourt MD When: 2 weeks Test Results: Test results from this visit will be discussed in further detail at your follow- up appointment, if applicable. Discharge Plan Admission Attending Provider: Mo Betancourt Primary Care Provider: Max Traylor Discharge Orders/Prescriptions Prescriptions: No Action atorvastatin 20 mg tablet 20 mg PO QHS acetaminophen [Tylenol] 325 mg Tablet 650 mg PO Q4H PRN (Reason: Pain) ibuprofen [Advil] 200 mg Tablet 200 mg PO Q6H PRN (Reason: Pain) finasteride 5 mg tablet 5 mg PO DAILY doxazosin 2 mg tablet 2 mg PO QHS Multivitamin Gummies 200 mcg Tablet,Chewable 1 tab PO DAILY ciprofloxacin HCl 500 mg tablet 500 mg PO BID Label Comments: take 1 tablet by mouth twice a day for 10 days Referrals / Follow Up: Max Traylor MD [Primary Care Provider] - Disposition Disposition (needs filled in before D/C Order can be placed): Home, Self Care
--- NOTE | 2022-05-07 12:04 | PCM.HP.STD ---
HPI - General HPI Narrative AIXA EAST, is a 72 M who presents FOR A turp has retention of urine. PFSH Medical History (Updated 05/04/22 @ 08:25 by Brittney Florez) Alcohol use High cholesterol Hypertension Non-smoker Wears glasses Home Medications atorvastatin 20 mg tablet 20 mg PO QHS 10/01/17 [History Last Taken 05/06/22] acetaminophen 325 mg tablet (Tylenol) 650 mg PO Q4H PRN Pain 05/04/22 [History Last Taken 05/07/22] doxazosin 2 mg tablet 2 mg PO QHS 05/04/22 [History Last Taken 05/06/22] finasteride 5 mg tablet 5 mg PO DAILY 05/04/22 [History Last Taken 05/06/22] ibuprofen 200 mg tablet (Advil) 200 mg PO Q6H PRN Pain 05/04/22 [History Last Taken 05/03/22] multivitamin with minerals-folic acid 200 mcg chewable tablet (Multivitamin Gummies) 1 tab PO DAILY 05/04/22 [History Last Taken 05/03/22] ciprofloxacin HCl 500 mg tablet 500 mg PO BID 05/07/22 [History Last Taken 05/06/22] Allergy/AdvReac Type Severity Reaction Status Date / Time penicillin V Allergy unknown Verified 05/07/22 10:19 Surgical History (Updated 05/04/22 @ 08:25 by Brittney Florez) H/O hernia repair Hx of total shoulder replacement left shoulder surgery Social History Smoking Status: Never smoker alcohol intake: current Vital Signs Vital Signs Vital Signs: 05/07/22 10:22 05/07/22 10:22 Temperature 98.9 F Temperature Source Temporal Pulse Rate 82 Respiratory Rate 18 Respiratory Pattern Normal Blood Pressure 137/84 H Blood Pressure Mean 101 Blood Pressure Source Monitor Blood Pressure Position Semi-Fowlers Blood Pressure Location Right Arm Pulse Ox 100 Oxygen Delivery Method Room Air Weight Weight: 77 kg Body Mass Index (BMI) 24.0
[2022-05-07] MEDS: Cefazolin 2 GM in 0.9% Normal Saline 100 ML IV (12:05)
--- NOTE | 2022-05-07 13:10 | OP.PCM_ITS ---
Report of Operation Date of Procedure: 05/07/22 Pre-Operative Diagnosis: BPH with obstruction urinary retention Post-Operative Diagnosis: Same Surgery/Procedure Performed:: Transurethral section of prostate Description of Surgical Findings:: In the preoperative setting I discussed with the patient how the surgery would be done with expect afterwards. We discussed how a prostate resection is done and we discussed the risk of the surgery including, bleeding, infection, retrograde ejaculation, changes with ejaculation or intercourse,. We discussed the possibility that the resection of the prostate may not alleviate his urinary symptoms. We discussed the small risk of developing scar tissue along the urethral channel and strictures. We also discussed the chance of the prostate could grow back and he may need further surgery or treatment in the future for prostate problems. Patient was taken back to the operating room, timeout procedure was performed, he was identified and marked and placed on the operating room table. He und erwent general anesthesia. He was placed in dorsolithotomy position. Penis and testicles were prepped and draped in usual sterile fashion. Went into the bladder using the visual obturator with a resectoscope. Once inside the bladder identified the right and left ureteral orifice. I then identified the prostate and the anatomy of the prostate. I marked out the area of the sphincter and the verumontanum was identified. I then proceeded with the prostate resection first resected the median lobe. And then resected the right lobe of the prostate. Then to resect the left lobe of the prostate. I then resected the apical tissue of the prostate. This was a complete resection of all obstructive tissue to improve voiding and relieve obstruction. I then made sure that there was no injury to the sphincter or the verumontanum was still intact. At the end of the resection all the chips were Ellik out of the bladder. I then identified the left and right ureteral orifice and these were confirmed to be in good position and effluxing and not injured. The resectoscope was removed, a 22 [place] catheter was placed into the bladder on continuous irrigation. And the urine was fairly light pink color and draining normally. He was taken back to the PACU in good condition. CPT 67616 Surgeon: Mo Betancourt Type of Anesthesia: General Drains: 22 fr 3 2way Admit VTE Documentation VTE Present on Admission: No VTE Mechan Device Prophylaxis: SCD's
[2022-05-07] MEDS: Ciprofloxacin 400 MG/200 ML BAG 200 MG IV (21:50)
[2022-05-07] MEDS: Atorvastatin Calcium 20 MG Tablet PO (21:51)
[2022-05-08 04:05] VITALS: BP 145/85; PULSE 68; RESP 18; TEMP 36.6; O2SAT 98
--- NOTE | 2022-05-08 07:05 | PCM.PN.GU ---
Subjective Subjective urine clear s/p turp d/c jimenez home after is able to void Objective Data Objective Data Vital Signs: Vital Signs Temp Pulse Resp BP Pulse Ox O2 Del Method 97.8 F 68 18 145/85 H 98 Room Air 05/08/22 04:05 05/08/22 04:05 05/08/22 04:05 05/08/22 04:05 05/08/22 04:05 05/08/22 04:05 Oxygen Delivery Method Room Air Weight: 80.83 kg Body Mass Index (BMI) 25.2 Intake & Output: Intake and Output for Last 24 Hours 05/06/22 05/07/22 05/08/22 23:59 23:59 23:59 Intake Total 1773.75 / 1773.75 Output Total 3100 / 3100 1300 / 1300 Balance -1326.25 / -1326.25 -1300 / -1300
[2022-05-08 09:27] VITALS: BP 122/69; PULSE 73; RESP 16; TEMP 36.7; O2SAT 100
[2022-05-08 09:28] VITALS: BP 122/69; PULSE 73; RESP 16; TEMP 36.7; O2SAT 100
[2022-05-08] MEDS: Ciprofloxacin 400 MG/200 ML BAG 200 MG IV (09:50)
--- NOTE | 2022-05-08 10:14 | PHA.DC.MR ---
Pharmacy Service has performed discharge medication reconciliation for this patient. The patient's discharge medication list was reviewed for discrepancies and discrepancies were resolved. Home Medications atorvastatin 20 mg tablet 20 mg PO QHS 10/01/17 acetaminophen 325 mg tablet (Tylenol) 650 mg PO Q4H PRN Pain 05/04/22 doxazosin 2 mg tablet 2 mg PO QHS 05/04/22 finasteride 5 mg tablet 5 mg PO DAILY 05/04/22 ibuprofen 200 mg tablet (Advil) 200 mg PO Q6H PRN Pain 05/04/22 multivitamin with minerals-folic acid 200 mcg chewable tablet (Multivitamin Gummies) 1 tab PO DAILY 05/04/22 ciprofloxacin HCl 500 mg tablet 500 mg PO BID 05/07/22
== END 2022-05-08 12:14 | disposition home or self-care (01) ==
LOC: SDC 13:44 → MS3 13:44
PROVIDERS: Admitting Provider Urology; PCP Internal Medicine; Referring Provider Urology; Visit Provider Urology
PROC: (CPT 52601; principal; 2022-05-07 11:35)
DX: N40.1 Benign prostatic hyperplasia with lower urinary tract symptoms (principal); E78.00 Pure hypercholesterolemia, unspecified; N13.9 Obstructive and reflux uropathy, unspecified; I10 Essential (primary) hypertension; R33.8 Other retention of urine; Z79.899 Other long term (current) drug therapy; N41.0 Acute prostatitis; N41.1 Chronic prostatitis
CPT/HCPCS: 52601; 00914; 88305; 96365; 96366; 99218; J7120; G0378; J0744; J2405

== ENCOUNTER 2022-07-26 12:00 | Outpatient (RCR) | payer MEDICARE, OTHER, SELFPAY ==
--- NOTE | 2022-05-01 12:48 | HP.PTEVAL ---
Patient's Visit Information AIXA EAST is a 72 year old M referred to Physical Therapy by STALIN MCKEON with a diagnosis of s/p removal o cement spacer and reverse TSA L. 04/11/22. Date of Evaluation: 05/01/22 Physical Therapist: Julius Boyd, DPT, OCS, CSCS - Visit Plan Frequency: 1-2x /Week Duration: 3 Months Plan: 1-2x/week for 6-8 weeks through end for slow progression of shoulder P/AROM and strength per protocol. Sling until 05/23, No IR, cross body adduction ot exctension for 12 weeks. 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 intiially work on PROM, restore AROM and isometrics, progress in May to 45 degree Ext rot and 120 scaption+(gently), can do resistance ex to elbow and wrist. Mid may can progress to AAROM/AROM, See protocol [facility] reverse TSA in folder. Next session: isometrics, PROM, gentle yoni, always painfree., scar massage. - Subjective 2year check up of reverse TSA done in 2017 got painful despite continued ex. At 3 year f/u was worse and had CTscan and new bone was starting to grow in new joint. Had severe infection on blood tests. L shoulder taken out in November due to infection. Finally 04/11 put in new reverse TSA. Been in a sling for 3 weeks. Once out of operating room has not had any pain in 3 weeks. Feels great. No pain meds. Doing AROM elbow and wrist. Arm never went behind him before and not expecting it back. Sleep is OK. Doping everything R handed, has been through this before. Cannot cut the lawn. Wants to get back to mobility of L shoulder. - Objective Walks into PT I with L shoulder in sling and abductor wedge. Transfers table and chair I without weight through L UE. Dons and doffs sling I. Incision is anterior and healed well with no signs of redness , heat or swelling. moderate scar tissue and tightness palpable under incision and only slightly tender. Elbow and wrist AROM WFL and without pain. Scapular ROM WFL and without pain L and R. Cervical spine clear and WFL AROM koo. R shoulder full and painfree AROM. L shoulder PROM 125 flexion in scaption, 90 abduction, 40 ext rotation and to body in supine IR easily without discomfort, all limited by some stretching but no real pain. Extension is to table in supine easily and without pain. Protocol and precautions reviewed today and patient understands them well. - Balance/Special Test Scores Quick DASH Score: 70.4525 - Goals Goal 1:: ST: AROM and PROm within protocol to remain 125+ of scsaption and 45 er without pain or limitations. Goal Time Frame: 2-4 Weeks Goal 2:: LT: Full aROM 140 scaption, 55 ext rotation and functional IR without pain to be i with ADLS including washing back and opposite arm pit Goal Time Frame: 6-8 Weeks Goal 3:: Patient feel shulder 90% better than presurgical levels Goal Time Frame: 6-8 Weeks Goal 4:: Walk without sling 5 miles confidently and comfortably Goal Time Frame: 6-8 Weeks Goal 5:: Quickdash score of 13 or better. Goal Time Frame: 6-8 Weeks - Rehabilitation Potential Physical Therapy Diagnosis: shoulder stiffness and weakness and dysfunction after shoulder surgery. Rehabilitation Potential: Excellent - Anticipated Interventions Patient/Client Instruction: Educate patient on: Condition, Plan of Care For the Purpose of:: To decrease swelling/inflammation, To increase ROM, To improve nutrient delivery to tissue, To improve muscle performance and motor function, To increase tolerance to activity/condition/position Therapeutic Exercise to Include: Strength training, Postural training, Passive ROM, Active ROM, Scapular Strength/Stabilization For the Purpose of:: To decrease pain, To increase ROM, To improve nutrient delivery to tissue, To improve muscle performance and motor function, To increase tolerance to activity/condition/position, To improve ability of physical actions for home/community/work/leisure, To improve gait and locomotor functions Manual Therapy Techniques to Include: Scar massage, Mobilization, Passive ROM For the Purpose of:: To decrease pain, To increase ROM, To improve nutrient delivery to tissue Cryotherapy (ice pack, ice massage): Yes For the Purpose of:: To decrease swelling/inflammation Thank you for the opportunity to evaluate your patient. For Medicare and Medicare HMO plans, please review the plan of care and approve it. It will need to be FAXED BACK to us at [phone] for Medicare purposes. For Medicare only, by signing this I certify the plan of care. Please let me know if there are questions or concerns regarding this plan of care. Physician Signature: Date:
--- NOTE | 2022-06-28 12:26 | HP.PTREVAL ---
STALIN MCKEON, It has been my pleasure to treat AIXA EAST over the last 9 visits for s/p removal o cement spacer and reverse L TSA L. 04/11/22. Please see the progress note below for an update on the physical therapy plan of care! Subjective: No pain and doing well this morning, been walking his miles without a problem. Motion is back where it needs to be , to doctor in a week. Still careful due to strength, Could not carry Zuly tree or lift heavier parts. Objective/Function: 148 AROM flexion and 14 abduction. 40 ext rotation. No pain. strength is 4/5 flex, abd, IR and 4- Er on L. Moving very well with minimal compensation L scap. Very functional. still avoiding IR adn adduction due to protocol Plan Plan: one more visit to teach gym shoulder press, chest press, pull down, row and IR, ER and ensure I. then likely d/c or follow up down the road. Pt to doctor in the meantime. Balance/Gait/Functional tests - Balance/Special Test Scores Quick DASH Score: 6.8175 Goals Goal 1:: ST: AROM and PROm within protocol to remain 125+ of scsaption and 45 er without pain or limitations. Goal Time Frame: 2-4 Weeks Goal Progress: Goal Met Goal 2:: LT: Full aROM 140 scaption, 55 ext rotation and functional IR without pain to be i with ADLS including washing back and opposite arm pit Goal Time Frame: 6-8 Weeks Goal Progress: Progressing Goal 3:: Patient feel shulder 90% better than presurgical levels Goal Time Frame: 6-8 Weeks Goal Progress: Goal Met Goal 4:: Walk without sling 5 miles confidently and comfortably Goal Time Frame: 6-8 Weeks Goal Progress: Goal Met Goal 5:: Quickdash score of 13 or better. Goal Time Frame: 6-8 Weeks Goal Progress: 14 Anticipated Interventions Patient/Client Instruction: Educate patient on: Condition, Plan of Care For the Purpose of:: To decrease swelling/inflammation, To increase ROM, To improve nutrient delivery to tissue, To improve muscle performance and motor function, To increase tolerance to activity/condition/position Therapeutic Exercise to Include: Strength training, Postural training, Passive ROM, Active ROM, Scapular Strength/Stabilization For the Purpose of:: To decrease pain, To increase ROM, To improve nutrient delivery to tissue, To improve muscle performance and motor function, To increase tolerance to activity/condition/position, To improve ability of physical actions for home/community/work/leisure, To improve gait and locomotor functions Manual Therapy Techniques to Include: Scar massage, Mobilization, Passive ROM For the Purpose of:: To decrease pain, To increase ROM, To improve nutrient delivery to tissue Cryotherapy (ice pack, ice massage): Yes For the Purpose of:: To decrease swelling/inflammation Please do not hesitate to contact me at [phone] by phone or if you have questions or concerns regarding this new plan of care! Sincerely, Julius Boyd, DPT, OCS, CSCS
--- NOTE | 2022-07-12 12:36 | HP.PTREVAL ---
STALIN MCKEON, It has been my pleasure to treat AIXA EAST over the last 10 visits for s/p removal o cement spacer and reverse L TSA L. 04/11/22. Please see the progress note below for an update on the physical therapy plan of care! Subjective: Saw PA and very happy , need more ext rotation ROM and strengthening and new script given. Objective/Function: Good ROM mehdi to last session. tolerated ex well on machines today excpt er, not strong enough. New goals set based on doctor order adn good prognosis. Plan Plan: per doctor , continue weekly x 3-4 to progress strength in gym. Next session post flyes, [place] stab, hip abd/add Balance/Gait/Functional tests - Balance/Special Test Scores Quick DASH Score: 6.8175 Goals Goal 1:: ST: AROM and PROm within protocol to remain 125+ of scsaption and 45 er without pain or limitations. Goal Time Frame: 2-4 Weeks Goal Progress: Goal Met Goal 2:: LT: Full aROM 140 scaption, 55 ext rotation and functional IR without pain to be i with ADLS including washing back and opposite arm pit Goal Time Frame: 2-4 Weeks Goal Progress: Progressing Goal 3:: Patient feel shulder 90% better than presurgical levels Goal Time Frame: 6-8 Weeks Goal Progress: Goal Met Goal 4:: Walk without sling 5 miles confidently and comfortably Goal Time Frame: 6-8 Weeks Goal Progress: Goal Met Goal 5:: Quickdash score of 13 or better. Goal Time Frame: 2-4 Weeks Goal Progress: 14 Goal 6:: I gym based HEP to continue on his own without increased pain. Goal Time Frame: 2-4 Weeks Anticipated Interventions Patient/Client Instruction: Educate patient on: Condition, Plan of Care For the Purpose of:: To decrease swelling/inflammation, To increase ROM, To improve nutrient delivery to tissue, To improve muscle performance and motor function, To increase tolerance to activity/condition/position Therapeutic Exercise to Include: Strength training, Postural training, Passive ROM, Active ROM, Scapular Strength/Stabilization For the Purpose of:: To decrease pain, To increase ROM, To improve nutrient delivery to tissue, To improve muscle performance and motor function, To increase tolerance to activity/condition/position, To improve ability of physical actions for home/community/work/leisure, To improve gait and locomotor functions Manual Therapy Techniques to Include: Scar massage, Mobilization, Passive ROM For the Purpose of:: To decrease pain, To increase ROM, To improve nutrient delivery to tissue Cryotherapy (ice pack, ice massage): Yes For the Purpose of:: To decrease swelling/inflammation Please do not hesitate to contact me at [phone] by phone or if you have questions or concerns regarding this new plan of care! Sincerely, Julius Boyd, DPT, OCS, CSCS
--- NOTE | 2022-10-19 09:10 | HP.PT.NRP ---
AIXA EAST was seen in my office for initial evaluation on 05/01/22. The following Plan of Care was established for this patient: Initial Frequency: 1-2x /Week Initial Duration: 3 Months Patient/Client Instruction: Educate patient on: Condition, Plan of Care For the Purpose of:: To decrease swelling/inflammation, To increase ROM, To improve nutrient delivery to tissue, To improve muscle performance and motor function, To increase tolerance to activity/condition/position Therapeutic Exercise to Include: Strength training, Postural training, Passive ROM, Active ROM, Scapular Strength/Stabilization For the Purpose of:: To decrease pain, To increase ROM, To improve nutrient delivery to tissue, To improve muscle performance and motor function, To increase tolerance to activity/condition/position, To improve ability of physical actions for home/community/work/leisure, To improve gait and locomotor functions Manual Therapy Techniques to Include: Scar massage, Mobilization, Passive ROM For the Purpose of:: To decrease pain, To increase ROM, To improve nutrient delivery to tissue Cryotherapy (ice pack, ice massage): Yes For the Purpose of:: To decrease swelling/inflammation This patient was last seen in our office 07/26/22. Pertinent comments regarding their Physical therapy will appear below: Pt seen 12 visits of POC and progressed nicely past 75% better and through strengthening. He was to f/u 3 weeks later but I have seen him working out in the gym and he is doing very well and will not be returning for more therapy. I will discontinue him at this time. At this point I will be discontinuing this patient from physical therapy. I would be happy to see this patient again in the future if found appropriate by the physician. Thank you! Julius Boyd, DPT, OCS, CSCS Balance/Gait/Functional tests - Balance/Special Test Scores Quick DASH Score: 6.8179
== END 2022-07-26 19:00 | disposition home or self-care (01) ==
LOC: PT 12:00
PROVIDERS: PCP Internal Medicine
DX: Z47.89 Encounter for other orthopedic aftercare (principal); Z98.890 Other specified postprocedural states
CPT/HCPCS: 97110; 97140; 97161; 97164; J2405

== ENCOUNTER → 2022-09-17 | Outpatient (CLI) | payer MEDICARE, OTHER, SELFPAY ==
[2022-09-17 14:07] LABS: PSA,Total- Diagnostic 4.12 ng/mL (0.0-4.0)
== END | disposition home or self-care (01) ==
LOC: LAB 12:33
PROVIDERS: PCP Internal Medicine; Referring Provider Urology; Visit Provider Urology
DX: N40.1 Benign prostatic hyperplasia with lower urinary tract symptoms (principal)
CPT/HCPCS: 36415; 84153

== ENCOUNTER → 2023-06-17 | Outpatient (CLI) | payer MEDICARE, OTHER, SELFPAY ==
[2023-06-17 11:00] LABS: PSA,Total- Diagnostic 4.27 ng/mL (0.0-4.0)
== END | disposition home or self-care (01) ==
LOC: LAB 08:45
PROVIDERS: PCP Internal Medicine; Visit Provider Urology
DX: N40.1 Benign prostatic hyperplasia with lower urinary tract symptoms (principal)
CPT/HCPCS: 36415; 84153

== ENCOUNTER 2024-01-29 11:30 | Outpatient (RCR) | payer MEDICARE, OTHER, SELFPAY ==
--- NOTE | 2023-12-25 11:43 | HP.PTEVAL ---
Patient's Visit Information Visit Information Visit Information: AIXA EAST is a 73 year old M referred to Physical Therapy by Dr. Max Traylor MD with a diagnosis of B hip pain. Date of Evaluation: 12/25/23 Physical Therapist: Julius Boyd, DPT, OCS, CSCS Visit Plan Frequency: 1x/Week Duration: 6 Weeks Plan: weekly x 3-6 as needed for progression of hip and LB stretches(today given seated flexion, ITB stretch and piriformis stretch 30 4 x all 2x/day) next session gym exercises for posterior hip muscles and verify technique on knee flex/ext, hip add. Consider DTR, MFR, sTM if pain persists. Subjective Subjective: Posterior hip pain. H/o LBP, MRI yrs ago showed some degeneration, Had MH and TENS which seemed to help. Last 12-18 months both hips have started hurting in glut area and can walk on TM without a problem. Does UE exercises sitting alot or riding in car or in bed. Seems worse when stagnant. Nothing hurt in doctor office. X rays came back clean. Works out at [employer] regularly but mostly upper body. Does knee ext/flexion and adduction but it hurts getting off of those. Does them 2x/week. Worse sitting adn getting up. First bunch of steps are tough. Walking is very mild discomfort, walk 5 miles 4-5 days per week. Sleeping hurts on the side. Pain b hips: Pain Intensity (Out of 10): 1 Pain Intensity Range: 0 and 7 Objective Objective: Walks normal adn I into PT. transfers easily bed and chair. Steps reciprocal without increased pain. Tender max to palpation B glut med and piriformis R >L. ITB max tight and hurts in the spot on each hips that hurt with Passive stretching. Hip AROM ext 8 B and weak 3+, abduction painful and weak 3+, flexion no pain. knee and ankle aROM WFL and strength 4+/5 LB AROM flexion max tight, ext WNL, SB hurts opposite side in the hip posteriorly. reflexes 2/3 patella and achilles Sensation LE WNL tog ross light touch. - CHERELLE, - FADDIR good balance and movement today mobility koo. Balance/Special Test Scores Lower Extremity Functional Score: 39 Goals Goal 1:: Tenderness in posterior hip min at worst Goal Time Frame: 4-6 Weeks Goal 2:: Pain in hips 1/10 at worst and manageable without activity modificaiton, 80% better overall. Goal Time Frame: 4-6 Weeks Goal 3:: I appropriate HEP to limit future problems Goal Time Frame: 4-6 Weeks Rehabilitation Potential Physical Therapy Diagnosis: pain in hips limiting comfortable function likely myofascial in nature. Rehabilitation Potential: Good Anticipated Interventions Patient/Client Instruction: Educate patient on: Condition and Plan of Care For the Purpose of:: To decrease pain, To increase ROM, To improve nutrient delivery to tissue and To improve muscle performance and motor function Therapeutic Exercise to Include: Strength training, Flexibilty training, Passive ROM and Active ROM For the Purpose of:: To decrease pain, To increase ROM, To improve nutrient delivery to tissue, To increase tolerance to activity/condition/position and To improve gait and locomotor functions Manual Therapy Techniques to Include: Trigger point massage, Passive ROM and Soft tissue mobilization For the Purpose of:: To decrease pain and To improve health of tissue Thermo therapy (hot pack): Yes For the Purpose of:: To improve nutrient delivery to tissue Text: Thank you for the opportunity to evaluate your patient. For Medicare and Medicare HMO plans, please review the plan of care and approve it. It will need to be FAXED BACK to us at [phone] for Medicare purposes. For Medicare only, by signing this I certify the plan of care. Please let me know if there are questions or concerns regarding this plan of care. Physician Signature: Date:
--- NOTE | 2024-01-29 11:54 | HP.PTDCSUM ---
Discharge Summary D/C summary: It has been my pleasure to treat AIXA EAST referred by Dr. Max Traylor MD, with the diagnosis of B hip pain for a total of 3 visit(s). Discharge Date: 01/29/24 Please see the following information for a summary of their discharge status. Subjective Subjective: R posterior hip is minimal but consistent and bothersome. Comfortable lying flat on back. Waking him up at night. Has had no scans. Stretching seems better than weightlifting. Doing piriformis stretch and ITB stretch Pain b hips: Pain Intensity (Out of 10): 1 Overall Improvement % Improvement: 0 Objective Objective/Function: LB ext max limited but no reporduction of symptoms, SB and flexion min limited, no pain, just stiff. Hips move excellent without pain, full ROM, - FADDIR, - CHERELLE, no pain and palpation is not an issue at priformis or anywhere else unusually. This is a confusing pain which does not appear to be coming from the hip and may be coming from the back, further investigation appropriate at least at back if not to r/o hip. Goals Goal 1:: Tenderness in posterior hip min at worst Goal Progress: Not Progressing Goal 2:: Pain in hips 1/10 at worst and manageable without activity modificaiton, 80% better overall. Goal Progress: Not Progressing Goal 3:: I appropriate HEP to limit future problems Goal Progress: Not Progressing Plan Plan: d/c, pt to schedule back with doctor due to lack of progress. D/C Information Discharge Comments: Back to doctor due to lack of improvement and clarity on problem(appears to be lumbar related to this therapist.) d/c sentence: If there are questions or concerns regarding this patient's physical therapy, please feel free to call me at [phone]. Thank you for the referral of this patient. Sincerely, Julius Boyd, DPT, OCS, CSCS Balance/Gait/Functional tests Balance/Special Test Scores Lower Extremity Functional Score: 43 Improvement % Improvement: 0
== END 2024-01-29 19:00 | disposition home or self-care (01) ==
LOC: PT 11:30
PROVIDERS: PCP Internal Medicine; Referring Provider Internal Medicine; Visit Provider Internal Medicine
DX: M25.551 Pain in right hip (principal); M25.552 Pain in left hip
CPT/HCPCS: 97110; 97161; 97530

== ENCOUNTER → 2024-06-18 | Outpatient (CLI) | payer MEDICARE, OTHER, SELFPAY | END | disposition home or self-care (01) | PROVIDERS: PCP Internal Medicine; Referring Provider Urology; Visit Provider Urology | DX: N40.1 Benign prostatic hyperplasia with lower urinary tract symptoms (principal) | CPT/HCPCS: 36415; 84153; G0103 ==

== ENCOUNTER → 2025-06-24 | Outpatient (CLI) | payer MEDICARE, OTHER, SELFPAY ==
[2025-06-24 11:57] LABS: PSA,Total- Diagnostic 3.34 ng/mL (0.00-4.00)
== END | disposition home or self-care (01) ==
PROVIDERS: PCP Internal Medicine; Referring Provider Urology; Visit Provider Urology
DX: R97.20 Elevated prostate specific antigen [PSA] (principal)
CPT/HCPCS: 36415; 84153